=== PATIENT | male | born 2000 | race Caucasian/White ===

== ENCOUNTER 2024-12-03 22:59 | Emergency (ER) | payer BC, SELFPAY ==
--- OUTSIDE RECORDS SUMMARY | 2024-12-03 23:01 | XMS_ITS ---
Author Organization Unknown ENCOUNTERS Encounter Performer Location Date Diagnosis Diagnosis Status Pre Admit [facility] [id number] [place] [id number] *Note: Encounters from your own facility or health system may be excluded. Allergies, Adverse Reactions, Alerts Allergen Type Severity Identification Date Medications Name Date Quantity Days Supplied GPI Number
[2024-12-03 23:08] VITALS: BP 120/67; PULSE 72; RESP 20; TEMP 36.9; O2SAT 100
--- NOTE | 2024-12-04 00:59 | ED_ITS ---
HPI - Skin/Abscess/Foreign Bdy General Chief complaint: Skin/Abscess/Foreign Body Stated complaint: abscess on right ear Time Seen by Provider: 12/04/24 00:53 Source: patient Mode of arrival: ambulatory Limitations: no limitations History of Present Illness HPI narrative: This is a 24 year old male that presents to the ER for abscess to the back of the right ear. Reports the area is painful. Denies fevers, drainage. Ongoing over the last week. Related Data Allergies Allergy/AdvReac Type Severity Reaction Status Date / Time No Known Allergies Allergy Verified 12/03/24 23:08 Review of Systems Review of Systems: All systems reviewed & are unremarkable except as noted in HPI and below PMFSH Past Medical History Medical History (Updated 12/04/24 @ 02:23 by Dorothy Renae PA-C) No active medical problems Exam Narrative: GENERAL: Well-appearing, well-nourished, and in no acute distress. HEAD: Normocephalic, atraumatic. EYES: EOMI. ENT: Bilateral TMs pearly dent non-bulging. Right posterior ear with 1.5cm area of erythema/edema with fluctuance NECK: Supple. No adenopathy or masses. CHEST: No respiratory distress. HEART: Regular rate EXTREMITIES: Normal range of motion. No edema. SKIN: Warm, dry, no rash. NEURO: No focal deficits. Alert and oriented x3. PSYCH: Normal mood and affect Course Vital Signs Vital signs: Vital Signs Temperature 98.4 F 12/03/24 23:08 Pulse Rate 72 12/03/24 23:08 Respiratory Rate 20 12/03/24 23:08 Blood Pressure 120/67 12/03/24 23:08 Pulse Oximetry 100 12/03/24 23:08 Oxygen Delivery Room Air 12/03/24 23:08 Temperature 98.4 F 12/03/24 23:08 Pulse Rate 72 12/03/24 23:08 Respiratory Rate 20 12/03/24 23:08 Blood Pressure 120/67 12/03/24 23:08 Pulse Oximetry 100 12/03/24 23:08 Oxygen Delivery Room Air 12/03/24 23:08 Procedures Abscess I/D other: Date of Incision: 12/04/24 Time of Incision: 02:28 Side (if applicable): right Local Anesthetic: lidocaine 1% Amount of anesthesia used (mL): 2 Technique: incised with #11 blade Irrigation: No Packing used?: none I&D Results: Pus and Blood MDM - Skin/Abscess/Foreign Bdy MDM Narrative Medical decision making narrative: Patient presents to the ER for a small abscess to the posterior external ear. Abscess was successfully drained. Patient educated on further wound care. Will be given follow-up with ENT. He was given warnings to return to the ER Differential Diagnosis Differential diagnosis: Likely abscess of skin or subcutaneous tissue and cellulitis Critical Care Time Critical Care Time Critical Care Time: No Discharge Plan Discharge Clinical Impression: Abscess of skin or subcutaneous tissue Qualifiers: Site of cutaneous abscess: head Qualified Code(s): L02.811 - Cutaneous abscess of head [any part, except face] Patient Disposition: Home Condition: Stable Instructions: Antibiotic Form, Abscess (ED) Additional Instructions: Return if symptoms worsen or concerns: any increase in redness, swelling, pain or fever over 101 Take antibiotics as directed. Clean wound with mild soapy water. Apply antibiotic ointment and clean dressing at least twice daily. Warm compresses 3 times a day for 20 minutes each Follow up with ENT Patient Language: [place] Prescriptions: New sulfamethoxazole-trimethoprim 800-160 mg tablet 1 tablet PO Q12H 7 Days Qty: 14 0RF Follow-up/Referrals: Raghu Dunlap MD [Physician, Ear, Nose, Throat] PHYSICIAN NOT ON STAFF,NONSTAFF [Primary Care Provider] Stand Alone Forms: Work/School Release IP
[2024-12-04] MEDS: LIDOCAINE, EPINEPHRINE, TETRACAINE VISCOUS SOLN 3 ML TOPICAL (01:05)
[2024-12-04] MEDS: LIDOCAINE 1% LOCAL INJ 10 ML VIAL INFILTRATE (01:06)
[2024-12-04] MEDS: LIDOCAINE 1% LOCAL INJ 10 ML VIAL (02:28)
== END 2024-12-04 02:30 | disposition home or self-care (01) ==
PROVIDERS: Emergency Provider Physician Assistant
DX: H60.01 Abscess of right external ear (principal)
CPT/HCPCS: 69000; 87070; 87075; 87205; 99283; J2003